=== PATIENT | female | born 1955 | race Caucasian/White ===

== ENCOUNTER 2024-08-22 11:33 | Outpatient (CLI) | payer MEDICARE | END 2024-08-22 11:34 | disposition home or self-care (01) | LOC: NAV RAD 11:33 | PROVIDERS: ATTEND Family Medicine | DX: M54.6 Pain in thoracic spine (principal); R07.81 Pleurodynia; M47.814 Spondylosis without myelopathy or radiculopathy, thoracic region; M47.812 Spondylosis without myelopathy or radiculopathy, cervical region | CPT/HCPCS: 71046; 72072 ==